=== PATIENT | female | born 1950 | race Caucasian/White ===

== ENCOUNTER → 2016-11-16 | Outpatient (CLI) | payer MEDICARE, MEDICAID ==
--- NOTE | ~2016-11-16 | NDGEN ---
PATIENT'S NAME: SRINIVASA GUTIERREZ [facility] AGE: 66 Y [address] ROOM: [place] [id number] LOCATION: [facility] ADMIT DATE: 11/16/2016 Neurodiagnostics DISCHARGE DATE: FAMILY PHYSICIAN: Caity Nicholas MD ATTENDING PHYSICIAN: ALLI RICHARD DATE OF PROCEDURE: 11/16/2016 PROCEDURE PERFORMED: Nerve conduction study as well as EMG of the 4 limbs as well as a repetitive nerve stimulation study to rule out myasthenia gravis associated with weakness and fatigue of the limbs. INDICATION FOR PROCEDURE: This is a 66-year-old female patient, who says that when she does exercise and after some simple walking around the house, she feels extremely fatigued. She does have a history of asthma which may be contributing to her fatigability. However, this EMG was done to rule out any aspect of a polyneuropathy or a myopathy associated with a potential muscle weakness. Furthermore, we did a special test, i.e., a repetitive nerve stimulation test to rule out any possibility of decrement of compound motor action potentials that would be seen in myasthenia gravis. The patient was on Mestinon in the past. She said that she did not find the medication to be helpful. The patient did not take the medication today for this particular test. PROCEDURE IN DETAIL: Nerve conduction studies were performed in the bilateral upper and lower extremities. Due to the patient's obesity, some proximal nerves, especially into the lower extremities could not be stimulated, however, we still performed a very good accurate testing of the distal portions of the nerves of her lower extremities. The upper extremities, in the bilateral median motor nerves, there was normal motor onset latencies with normal amplitudes and normal nerve conduction velocities, well within normal range of nearly 46 to 49 m/sec. In the bilateral ulnar motor nerves, there was also normal motor onset latencies, amplitudes, as well as nerve conduction velocities into the 50 to 60 m/sec range, very normal. In the lower extremities, the bilateral peroneal nerves at the ankles were stimulated, and there was normal motor onset latencies seen with normal amplitudes and normal conduction velocities into the 40 m/sec range. The tibial motor nerves could not be stimulated proximally, however, distally, there was normal motor onset latencies and normal amplitudes seen. The sensory nerve conduction studies of the bilateral upper extremities showed normal amplitudes and normal peaked PATIENT'S NAME: SRINIVASA GUTIERREZ [facility] AGE: 66 Y [address] ROOM: [place] [id number] LOCATION: [facility] ADMIT DATE: 11/16/2016 Neurodiagnostics DISCHARGE DATE: FAMILY PHYSICIAN: Caity Nicholas MD ATTENDING PHYSICIAN: ALLI RICHARD onset latencies in the bilateral median and ulnar nerves with normal nerve conduction velocities. Finally, the bilateral sural nerves could not be stimulated which would be expected with the patient's body habitus. Next, a repetitive nerve stimulation test was done by stimulating the patient's right accessory nerve and recording over the right trapezius crest muscle. The first part involved with the patient at rest a volley of 10 stimulations were given, and there was recorded normal amplitudes of the compound motor action potentials without any evidence of any decrement. On the second part of the study, the patient was exercised for a total of 2 minutes and after a brief pause again, the accessory nerve was stimulated and recorded over the right trapezius muscle. There was no evidence of any decreased compound motor action potential seen at all throughout the study, thus fatigability did not result in any problem at the neuromuscular junction. Finally, the needles were placed into the upper extremity muscles including the biceps, triceps, and deltoid muscles and into the right lower extremity tibialis anterior muscle. All muscles showed no evidence of any abnormal spontaneous electrical activity such as positive sharp waves or fibrillation potentials. On voluntary recruitment of all these muscles, there was normal recruitment of motor unit action potentials with normal sizes of these motor units. There was no evidence of any myopathic motor units, and no evidence of any early recruitment that would be seen in a myopathic process. Again the sizes of the motor units were all normal with normal durations and normal amplitudes. IMPRESSION: This nerve conduction study of the bilateral upper and lower extremities was all within normal limits. The EMG study was also normal. Repetitive nerve stimulation study was completely normal. Therefore, the study did not find any evidence for any focal neuropathy or polyneuropathy of the upper or lower extremities or was there any evidence for a myopathic process to explain the patient's weakness. Finally repetitive nerve stimulation did not find any evidence for the findings that would be seen in myasthenia gravis. At the end of our study, I have recommended to the patient since the patient has had a normal study and no response to Mestinon. Participate in a good exercise program for increasing her lung capacity as this seems to be a likely etiology for the patient's fatigability with exercise. MD ELICIA WEATHERS/mckinley /[id number] dtt: 11/25/16 1318 , ALLI RICHARD dtd: 11/16/16 1713
== END | disposition disaster alternative care site (69) ==
LOC: GNEU 12:48
DX: G70.00 Myasthenia gravis without (acute) exacerbation (principal); R53.83 Other fatigue